=== PATIENT | female | born 1995 | race African-American/Black ===

== ENCOUNTER 2021-02-13 07:16 | Inpatient (IN) | payer OTHER ==
[2021-02-13] MEDS ORDERED: hydrALAZINE 20 MG/ML VIAL SLOW IVP PRN (07:40)
[2021-02-13] MEDS ORDERED: Promethazine HCl 25 MG/ML VIAL IM PRN (07:40)
[2021-02-13] MEDS ORDERED: Ibuprofen 400 MG TAB PO PRN (07:44)
[2021-02-13] MEDS ORDERED: Lactated Ringer's 1,000 ML IV SCH ×2 (07:45)
[2021-02-13] MEDS: Acetaminophen 500 MG TAB PO PRN ×2 (12:49→20:41)
[2021-02-13] MEDS: Lactated Ringer's 1,000 ML IV SCH ×2 (12:52→20:38)
[2021-02-13 20:02] LABS: SARS-CoV-2 PCR by NAA Not Detected (NotDetected)
[2021-02-14] MEDS: Lactated Ringer's 1,000 ML IV SCH ×4 (00:45→21:45)
[2021-02-14] MEDS: Ondansetron PF 4 MG/2 ML Vial IVP PRN (03:34)
[2021-02-14] MEDS: Acetaminophen 500 MG TAB PO PRN ×3 (03:34→16:27)
[2021-02-14] MEDS: cefTRIAXone\\ROCEPHIN 2 GM in Sodium Chloride 0.9% 100 ML IVPB SCH (08:59)
[2021-02-15] MEDS: Ondansetron PF 4 MG/2 ML Vial IVP PRN
[2021-02-15] MEDS: Lactated Ringer's 1,000 ML IV SCH ×2 (06:18→16:28)
[2021-02-15] MEDS: cefTRIAXone\\ROCEPHIN 2 GM in Sodium Chloride 0.9% 100 ML IVPB SCH (09:29)
[2021-02-15] MEDS: Acetaminophen 500 MG TAB PO PRN ×2 (13:55)
[2021-02-15 16:28] VITALS: BP 98/65; TEMP 98.4
== END 2021-02-15 18:30 | disposition home or self-care (01) | DRG 833 ==
LOC: CSHANTE 07:16
PROVIDERS: ADMIT Obstetrics & Gynecology; ATTEND Obstetrics & Gynecology
DX: O23.02 Infections of kidney in pregnancy, second trimester (principal); Z3A.15 15 weeks gestation of pregnancy; Z20.822 Contact with and (suspected) exposure to COVID-19; B96.20 Unspecified Escherichia coli [E. coli] as the cause of diseases classified elsewhere
CPT/HCPCS: 76770; 87635; J0696; J2405; J3490; U0003; U0005

== ENCOUNTER 2021-03-15 19:01 | Emergency (ER) | payer OTHER ==
[2021-03-15 20:03] LABS: Bilirubin Neg (Negative); Blood, Urine Negative (Negative); Clarity Clear (Clear); Glucose, Urine (Dipstick) Normal (Negative); Ketone, Urine Negative (Negative); Leukocyte 100 (Negative); Nitrite Negative (Negative); Protein, Urine (Dipstick) Negative (Neg-Trace); Specific Gravity, Urine 1.015 (1.002-1.036); Urobilinogen Normal mg/dL (Less than 2)
[2021-03-15 20:13] LABS: Bacteria/HPF 2+ HPF (None Seen); RBC/HPF 0-3 HPF (0-3); Squamous Epithelial 0-3 HPF (0-3)
[2021-03-18 20:54] LABS: Chlamydia by PCR Not Detected (NotDetected); GC by PCR Not Detected (NotDetected)
== END 2021-03-15 21:09 | disposition home or self-care (01) ==
LOC: CSHERS 19:01
DX: O23.42 Unspecified infection of urinary tract in pregnancy, second trimester (principal); Z3A.19 19 weeks gestation of pregnancy; Z79.899 Other long term (current) drug therapy
CPT/HCPCS: 76815; 81003; 81015; 87077; 87086; 87480; 87491; 87510; 87591; 87660

== ENCOUNTER 2021-07-02 01:22 | Day surgery (SDC) | payer OTHER ==
[2021-07-02 01:37] VITALS: BMI 29.0
[2021-07-02] MEDS ORDERED: Morphine 10 MG/ML VIAL ONE (02:08)
[2021-07-02] MEDS ORDERED: Morphine 10 MG/ML VIAL SLOW IVP SCH (02:30)
[2021-07-02] MEDS ORDERED: Promethazine HCl 25 MG/ML VIAL IM SCH (02:30)
[2021-07-02] MEDS ORDERED: hydrALAZINE 20 MG/ML VIAL SLOW IVP PRN (03:58)
== END 2021-07-02 04:38 | disposition home or self-care (01) ==
LOC: CSHLD/OP 01:22
PROVIDERS: ATTEND Family Medicine
DX: O99.891 Other specified diseases and conditions complicating pregnancy (principal); R10.2 Pelvic and perineal pain; Z3A.35 35 weeks gestation of pregnancy; Z79.899 Other long term (current) drug therapy
CPT/HCPCS: 96360; 96372; 96375; 99283; J2270; J2550

== ENCOUNTER 2023-12-02 16:26 | Outpatient (CLI) | payer OTHER ==
[2023-12-02 17:36] LABS: Hematocrit 34.6 % (34.9-44.5); Hemoglobin 11.8 g/dL (12.0-15.5); Mean Corpuscular HGB CONC 34.1 g/dL (32.0-36.0); Mean Corpuscular Volume 82.2 fl (81.6-98.3); Mean Platelet Volume 9.3 fl (7.4-10.4); Platelet Count 222 10x3/uL (150-450); RBC Distribution Width 12.8 % (11.5-14.5); Red Blood Cell (RBC) Count 4.21 10x6/uL (3.90-5.03); White Blood Cell (WBC) Count 6.2 10x3/uL (3.5-10.5)
[2023-12-02 17:38] LABS: BHCG - Serum Negative (NEGATIVE); Pregs Control Background? CLEAR/WHITE (CLR/WHITE); Pregs Control Bar Appear? YES (CONTROL BAR)
[2023-12-02 17:39] LABS: Anion Gap 11 mmol/L (10-20); BUN (Urea Nitrogen) 9 mg/dL (7.0-18.7); Calc. Creatinine Clearance 0 mL/min (70-130); Calcium 9.2 mg/dL (7.8-10.44); Carbon Dioxide 26 mmol/L (22-29); Chloride 106 mmol/L (98-107); Estimated GFR 100; Glucose 84 mg/dL (70-105); Sodium 139 mmol/L (136-145)
== END 2023-12-02 16:27 | disposition home or self-care (01) ==
LOC: CSHLAB 16:26
PROVIDERS: ATTEND Podiatrist Foot & Ankle Surgery
DX: Z01.812 Encounter for preprocedural laboratory examination (principal); M21.612 Bunion of left foot
CPT/HCPCS: 80048; 84703; 85027

== ENCOUNTER 2023-12-10 10:22 | Day surgery (SDC) | payer OTHER ==
[2023-12-09 15:01] VITALS: BMI 24.5
[2023-12-10] MEDS ORDERED: Ondansetron PF 4 MG/2 ML Vial IVP PRN (12:30)
[2023-12-10] MEDS ORDERED: Promethazine HCl 25 MG/ML VIAL IM PRN (12:30)
[2023-12-10] MEDS ORDERED: Zolpidem Tartrate 5 MG TAB PO PRN (12:30)
[2023-12-10] MEDS ORDERED: Ropivacaine 0.2% 550 ML 550 ML NERVE BLCK SCH (12:30)
[2023-12-10] MEDS ORDERED: fentaNYL 50 mcg/mL 1 mL Vial ONE (12:55)
[2023-12-10] MEDS ORDERED: PROPOFOL 20 ML ONE ×2 (12:55→14:49)
[2023-12-10] MEDS ORDERED: Dexamethasone 4 mg/ml Vial ONE (12:57)
[2023-12-10] MEDS ORDERED: Ondansetron PF 4 MG/2 ML Vial ONE (12:57)
[2023-12-10] MEDS ORDERED: Dexmedetomidine 200 MCG/2 ML VIAL ONE (12:59)
[2023-12-10] MEDS ORDERED: CEFAZOLIN 2 GM VIAL ONE (13:05)
[2023-12-10] MEDS ORDERED: Bupivacaine PF 0.5% 30 ML VIAL ONE (13:53)
[2023-12-10] MEDS ORDERED: ePHEDrine Sulfate 50 MG/10 ML VIAL ONE (14:00)
== END 2023-12-10 17:00 | disposition home or self-care (01) ==
LOC: CSHSDC 10:22
PROVIDERS: ATTEND Podiatrist Foot & Ankle Surgery
PROC: 0QSP04Z Reposition Left Metatarsal with Internal Fixation Device, Open Approach (ICD-10-PCS; principal; 2023-12-10)
DX: M21.612 Bunion of left foot (principal); M20.22 Hallux rigidus, left foot; Z79.899 Other long term (current) drug therapy
CPT/HCPCS: A4306; C1713; C1769; C1776; J0665; J1100; J2405; J2704; J2795; J3010

== ENCOUNTER 2024-08-24 12:26 | Emergency (ER) | payer OTHER, SELFPAY ==
[2024-08-24] MEDS ORDERED: Ketorolac Tromethamine 30 MG (1 mL) VIAL ONE (13:13)
[2024-08-24 13:19] LABS: #Basophils 0.02 10x3/uL (0.0-0.2); #Eosinophils 0.09 10x3/uL (0.0-0.5); #Monocytes 0.27 10x3/uL (0.0-1.1); %Basophils 0.5 % (0.0-2.0); %Lymphocytes 32.4 % (18.0-47.0); %Monocytes 6.1 % (0.0-10.0); %Neutrophils 58.8 % (40.0-75.0); Hematocrit 35.7 % (34.9-44.5); Hemoglobin 11.9 g/dL (12.0-15.5); Mean Corpuscular HGB CONC 33.3 g/dL (32.0-36.0); Mean Corpuscular Hemoglobin 27.5 pg (27.0-33.0); Mean Corpuscular Volume 82.4 fL (81.6-98.3); Mean Platelet Volume 8.9 fL (7.4-10.4); Platelet Count 198 10x3/uL (150-450); RBC Distribution Width 12.6 % (11.5-14.5); Red Blood Cell (RBC) Count 4.33 10x6/uL (3.90-5.03); White Blood Cell (WBC) Count 4.4 10x3/uL (3.5-10.5)
[2024-08-24 13:42] LABS: ALT (SGPT) 9 U/L (8-55); AST (SGOT) 13 U/L (5-34); Albumin 4.2 g/dL (3.5-5.0); Alkaline Phosphatase 30 U/L (40-110); Anion Gap 12 mmol/L (10-20); BUN (Urea Nitrogen) 12 mg/dL (7.0-18.7); Bilirubin, Total 0.6 mg/dL (0.2-1.2); Calc. Creatinine Clearance 0 mL/min (70-130); Calcium 9.4 mg/dL (7.8-10.44); Carbon Dioxide 24 mmol/L (22-29); Chloride 106 mmol/L (98-107); Estimated GFR 96; Globulin 3.1 g/dL (2.4-3.5); Glucose 80 mg/dL (70-105); Lipase 31 U/L (8-78); Potassium 3.4 mmol/L (3.5-5.1); Protein, Total 7.3 g/dL (6.0-8.3); Sodium 139 mmol/L (136-145)
[2024-08-24 14:24] LABS: Bilirubin Neg (Negative); Blood, Urine Negative (Negative); Clarity Clear (Clear); Glucose, Urine (Dipstick) Normal (Negative); Ketone, Urine 5 mg/dL (Negative); Leukocyte 100 (Negative); Nitrite Negative (Negative); Protein, Urine (Dipstick) Negative (Neg-Trace); Specific Gravity, Urine 1.015 (1.005-1.030)
[2024-08-24 14:35] LABS: Pregnancy Test - Urine (BHCG) Negative (Negative); Pregu Control Background? CLEAR/WHITE (CLR/WHITE); Pregu Control Bar Appear? YES (CONTROL BAR); Specific Gravity 1.015 (1.002-1.036)
[2024-08-24 15:15] LABS: RBC/HPF None Seen HPF (0-3)
[2024-08-24 15:16] LABS: Bacteria/HPF Rare-Few HPF (None Seen); CAUTI Indications for Culture Pelvic or flank pain; Squamous Epithelial 0-3 HPF (0-3); Trichomonas/HPF 2+ HPF (None Seen); Urine Culture Reflex No No
[2024-08-24] MEDS ORDERED: metroNIDAZOLE 500 MG TAB ONE (15:38)
== END 2024-08-24 15:56 | disposition home or self-care (01) ==
LOC: CSHERS 12:26
DX: I49.1 Atrial premature depolarization (principal); A59.00 Urogenital trichomoniasis, unspecified
CPT/HCPCS: 71046; 80053; 81001; 81025; 83690; 85025; 93005; 96374; J1885

== ENCOUNTER 2024-09-30 18:04 | Emergency (ER) | payer SELFPAY, OTHER ==
[2024-09-30] MEDS ORDERED: Ketorolac Tromethamine 30 MG (1 mL) VIAL ONE (18:22)
== END 2024-09-30 20:13 | disposition home or self-care (01) ==
LOC: CSHERS 18:04
DX: S16.1XXA Strain of muscle, fascia and tendon at neck level, initial encounter (principal); V43.52XA Car driver injured in collision with other type car in traffic accident, initial encounter
CPT/HCPCS: 72125; 96372; J1885